=== PATIENT | male | born 1955 | race Caucasian/White ===

== ENCOUNTER 2016-03-23 10:45 | Emergency (ER) | payer MEDICARE, OTHER ==
[~2016-03-23] VITALS: Ht 170.2 cm; Wt 70.0 kg
[~2016-03-23 10:45] MED LIST: BENZ2TAB37 PO; LAMO100T6 PO; NIFE30TA60 PO
[2016-03-23 10:49] VITALS: Ht 170.2 cm; Wt 70.0 kg
== END 2016-03-23 14:36 | disposition left against medical advice (07) ==
LOC: FTE 10:45
DX: Z53.21 Procedure and treatment not carried out due to patient leaving prior to being seen by health care provider (principal)

== ENCOUNTER 2016-03-26 05:58 | Emergency (ER) | payer MEDICARE, OTHER ==
[~2016-03-26] VITALS: Ht 182.9 cm; Wt 75.0 kg
[2016-03-26 06:01] VITALS: Ht 182.9 cm; Wt 75.0 kg
--- NOTE | 2016-03-26 07:26 | RADRPT ---
PROCEDURE: XR Chest. CLINICAL INDICATION: cough TECHNIQUE: Portable single view of the chest COMPARISON: None. FINDINGS: The cardiomediastinal silhouette appears within normal limits. Minimal increase in bibasilar markin gs is likely due to slight crowding of bronchovascular markings. No definite acute infiltrate, pleu ral effusion, or overt congestive heart failure is seen. Degenerative change with rightward scolios is of the thoracic spine. IMPRESSION: No definite acute pulmonary disease. RPTAT: HLBE Argentina Ramos Physician Date Time Electronically viewed and signed by Argentina Ramos Physician on 03/26/2016 07:26 LE/
[2016-03-26] MEDS ORDERED: CETI10CA PO (07:49)
[2016-03-26] MEDS ORDERED: BENZ100C70 PO (07:49)
[2016-03-26 08:01] VITALS: BP 138/72; PULSE 78; RESP 20; TEMP 98.1
--- NOTE | 2016-03-26 11:21 | ERD ---
ER Documentation Chief Complaint Date/Time DATE: 03/26/16 TIME: 11:16 Chief Complaint cold symptoms- nasal congestion,runny nose, cough HPI 60-year-old male with a past medical history of schizophrenia, hypertension, bipolar disorder, schizoaffective disorder presents the ED complaining of rhinorrhea, nasal congestion, dry cough that started intermittently 2 weeks ago. Patient states that he has been drinking ice tea and coffee. Denies taking any medications. Denies any chest pain, shortness of breath, abdominal pain, nausea, vomiting, diarrhea, dyspnea on exertion, orthopnea. ROS All systems reviewed and are negative except as per history of present illness. Medications Home Meds Active Scripts Cetirizine Hcl* (Zyrtec*) 10 Mg Capsule, 10 MG PO DAILY, #10 TAB.CHEW Prov:JOSELITO CUEVAS PA-C 03/26/16 Benzonatate* (Tessalon Perle*) 100 Mg Capsule, 100 MG PO Q8H Y for COUGH, #20 CAP Prov:JOSELITO CUEVAS PA-C 03/26/16 Reported Medications Nifedipine* (Nifedipine ER*) 30 Mg Tablet.sa, 30 MG PO DAILY, TAB.SA 07/06/15 Lamotrigine* (Lamictal* ODT) 100 Mg Tab.rapdis, 100 MG PO DAILY, TAB 07/06/15 Benztropine Mesylate* (Benztropine Mesylate*) 2 Mg Tablet, 2 MG PO BID, TAB 07/06/15 Allergies Allergies: Coded Allergies: No Known Drug Allergies (Verified Allergy, Mild, 03/26/16) PMhx/Soc History of Surgery: No Anesthesia Reaction: No Hx Neurological Disorder: No Hx Respiratory Disorders: No Hx Cardiac Disorders: Yes (htn) Hx Psychiatric Problems: Yes (bipolar; schizophrenia) Hx Miscellaneous Medical Probl: Yes (Renal insuffiency) Hx Alcohol Use: No Hx Substance Use: No Hx Tobacco Use: No (25 years ago) Smoking Status: Never smoker Physical Exam Vitals Vital Signs Date Time Temp Pulse Resp B/P Pulse Ox O2 Delivery O2 Flow Rate FiO2 03/26/16 08:01 98.1 78 20 138/72 99 Room Air 03/26/16 06:01 97.8 84 20 143/87 99 Physical Exam Const: Wpt-zao-bjlxoqrxk, well-nourished. In no acute distress. Head: Atraumatic, normocephalic Eyes: Normal Conjunctiva without injection. No purulent discharge. PERRL. EOMI ENT: Normal external ear. Ear canal without erythema. Tympanic membrane pearly araujo without effusion or bulging. Nasal canal clear with normal turbinates. Moist oropharynx without tonsillar exudates. Non-erythematous pharynx. Uvula midline. No drooling. No trismus. Neck: Full range of motion. No meningismus. No cervical lymphadenopathy. Resp: Clear to auscultation bilaterally. No wheezing, rhonchi, rales, or crackles. No accessory muscle use. No retractions. Cardio: Regular rate and rhythm. No murmurs, rubs or gallops. Abd: Soft, non tender, non distended. Normal bowel sounds. No palpable masses. No rebound tenderness. No guarding. Skin: No petechiae or rashes Back: No midline tenderness. No CVA tenderness. Ext: No cyanosis, or edema. Neur: Awake and alert. Psych: Normal Mood and Affect Procedures/MDM This is a 60-year-old male with a past medical history of schizophrenia, hypertension, bipolar disorder, schizoaffective disorder presents to the ED complaining of dry cough, runny nose, nasal congestion. Patient is afebrile nontoxic appearing. Patient has normal vital signs. PROCEDURE: XR Chest. CLINICAL INDICATION: cough TECHNIQUE: Portable single view of the chest COMPARISON: None. FINDINGS: The cardiomediastinal silhouette appears within normal limits. Minimal increase in bibasilar markings is likely due to slight crowding of bronchovascular markings. No definite acute infiltrate, pleural effusion, or overt congestive heart failure is seen. Degenerative change with rightward scoliosis of the thoracic spine. IMPRESSION: No definite acute pulmonary disease. This patient presents to the ED with symptoms consistent with a viral acute upper respiratory infection. Patient is afebrile and has normal vital signs. Patient's physical exam include lungs which were clear to auscultation and a normal pulse oximetry. There is a low suspicion for pneumonia, pneumothorax, pulmonary embolism, epiglottitis, otitis media, otitis externa, viral/strep pharyngitis, sinusitis, peritonsillar abscess, mastoiditis, retropharyngeal abscess, meningitis, sepsis, acute abdomen or other emergent conditions. Fluids , rest, and symptomatic treatment are recommended for the management of patient' s symptoms. Discharge medications: Zyrtec, Tessalon Madelainees Patient was instructed to return to the ED for any new or worsening symptoms. They should otherwise follow up with the primary care provider within 1-2 days. The patient's questions were answered at the time of discharge. Patient understood and agreed with discharge management. Departure Diagnosis: Primary Impression: URI (upper respiratory infection) URI type: unspecified URI Qualified Code: J06.9 - Upper respiratory tract infection, unspecified type Condition: Stable Patient Instructions: Uri, Viral, No Abx (Adult) Referrals: [facility] YOU HAVE RECEIVED A MEDICAL SCREENING EXAM AND THE RESULTS INDICATE THAT YOU DO NOT HAVE A CONDITION THAT REQUIRES URGENT TREATMENT IN THE EMERGENCY DEPARTMENT. FURTHER EVALUATION AND TREATMENT OF YOUR CONDITION CAN WAIT UNTIL YOU ARE SEEN IN YOUR DOCTORS OFFICE WITHIN THE NEXT 1-2 DAYS. IT IS YOUR RESPONSIBILITY TO MAKE AN APPOINTMENT FOR FOLOW-UP CARE. IF YOU HAVE A PRIMARY DOCTOR --you should call your primary doctor and schedule an appointment IF YOU DO NOT HAVE A PRIMARY DOCTOR YOU CAN CALL OUR PHYSICIAN REFERRAL HOTLINE AT IF YOU CAN NOT AFFORD TO SEE A PHYSICIAN YOU CAN CHOSE FROM THE FOLLOWING [facility] [address]. [facility] [address] [facility]. [facility] [address] [facility] [facility] [address] [facility]. [facility] [address] [facility] [facility]. [address] [facility]. [facility] YOU HAVE RECEIVED A MEDICAL SCREENING EXAM AND THE RESULTS INDICATE THAT YOU DO NOT HAVE A CONDITION THAT REQUIRES URGENT TREATMENT IN THE EMERGENCY DEPARTMENT. FURTHER EVALUATION AND TREATMENT OF YOUR CONDITION CAN WAIT UNTIL YOU ARE SEEN IN YOUR DOCTORS OFFICE WITHIN THE NEXT 1-2 DAYS. IT IS YOUR RESPONSIBILITY TO MAKE AN APPOINTMENT FOR FOLOW-UP CARE. IF YOU HAVE A PRIMARY DOCTOR --you should call your primary doctor and schedule and appointment IF YOU DO NOT HAVE A PRIMARY DOCTOR YOU CAN CALL OUR PHYSICIAN REFERRAL HOTLINE AT . IF YOU CAN NOT AFFORD TO SEE A PHYSICIAN YOU CAN CHOSE FROM THE FOLLOWING [facility] INSTITUTIONS: [facility] [address] [place] [address] [facility] [address] [place] [address] [facility] [address] [place] [address] [facility] URGENT CARE/SPECIALTIES Additional Instructions: FOLLOW UP WITH YOUR PRIMARY CARE PHYSICIAN TOMORROW.Return to this facility if you are not improving as expected. JOSELITO CUEVAS PA-C Mar 26, 2016 11:20
== END 2016-03-26 08:02 | disposition home or self-care (01) ==
LOC: FTE 05:58
DX: J06.9 Acute upper respiratory infection, unspecified (principal); I10 Essential (primary) hypertension
CPT/HCPCS: 71010

== ENCOUNTER 2016-06-10 17:06 | Emergency (ER) | payer MEDICARE, OTHER ==
[~2016-06-10] VITALS: Ht 172.7 cm; Wt 75.0 kg
[~2016-06-10 17:06] MED LIST changes: +BENZ100C70 PO; +CETI10CA PO
[2016-06-10 17:23] VITALS: Ht 172.7 cm; Wt 75.0 kg
[2016-06-10] MEDS ORDERED: FLUT9.9S NASAL (17:53)
[2016-06-10] MEDS ORDERED: FEXO180T61 PO (17:53)
[2016-06-10] MEDS ORDERED: LEVO750T25 PO (17:53)
--- NOTE | 2016-06-10 17:59 | ERD ---
ER Documentation Chief Complaint Date/Time DATE: 06/10/16 TIME: 17:57 Chief Complaint POST NASAL DRIP, I THINK I NEED ABX HPI This is a 60-year-old male presents to the ER sooner symptoms, cough and cold for the last month. Patient is not complaining of postnasal drip. She denies any chest pain and shortness. This has been trying [id number] medications however they've not worked. Patient has a past history of psychiatric illnesses , he is currently homeless. ROS 12 point review of systems was done, all negative except per HPI. Medications Home Meds Active Scripts Fexofenadine Hcl* (Masha*) 180 Mg Tablet, 180 MG PO DAILY, #30 TAB Prov:HUSSEIN CORRIGAN 06/10/16 Fluticasone Propionate (Flonase Allergy Relief) 9.9 Ml [place].susp, 1 SPRAY NASAL BID, #1 BOTTLE TO EACH NOSTRIL Prov:HUSSEIN CORRIGAN 06/10/16 Levofloxacin* (Levaquin*) 750 Mg Tablet, 750 MG PO DAILY for 5 Days, TAB Prov:HUSSEIN CORRIGAN 06/10/16 Cetirizine Hcl* (Zyrtec*) 10 Mg Capsule, 10 MG PO DAILY, #10 TAB.CHEW Prov:JOSELITO CUEVAS PA-C 03/26/16 Benzonatate* (Tessalon Perle*) 100 Mg Capsule, 100 MG PO Q8H Y for COUGH, #20 CAP Prov:JOSELITO CUEVAS PA-C 03/26/16 Reported Medications Nifedipine* (Nifedipine ER*) 30 Mg Tablet.sa, 30 MG PO DAILY, TAB.SA 07/06/15 Lamotrigine* (Lamictal* ODT) 100 Mg Tab.rapdis, 100 MG PO DAILY, TAB 07/06/15 Benztropine Mesylate* (Benztropine Mesylate*) 2 Mg Tablet, 2 MG PO BID, TAB 07/06/15 Allergies Allergies: Coded Allergies: No Known Drug Allergies (Verified Allergy, Mild, 03/26/16) PMhx/Soc History of Surgery: No Anesthesia Reaction: No Hx Neurological Disorder: No Hx Respiratory Disorders: No Hx Cardiac Disorders: Yes (htn) Hx Psychiatric Problems: Yes (bipolar; schizophrenia) Hx Miscellaneous Medical Probl: Yes (Renal insuffiency) Hx Alcohol Use: No Hx Substance Use: No Hx Tobacco Use: No (25 years ago) Physical Exam Vitals Vital Signs Date Time Temp Pulse Resp B/P Pulse Ox O2 Delivery O2 Flow Rate FiO2 06/10/16 17:23 97.9 80 22 125/75 98 Physical Exam GENERAL: The patient is well-developed, well-nourished, in no acute distress. NECK: Cervical spine is non tender with no step off. Supple, no nuchal rigidity HEENT: Atraumatic. Pupils equal, round and reactive to light. Extraocular muscles are grossly intact. Conjunctivae pink, no discharge. Bilateral tympanic membranes are clear with no evidence of erythema, effusion or dulling of the light reflex. Tonsilar erythema with no exudates or uvular deviation. Clear rhinorrhea. RESPIRATORY: Clear to auscultation bilaterally. There are no rales, wheezes or rhonchi. HEART: Regular rate and rhythm. No murmurs, clicks, rubs or gallops. EXTREMITIES: No clubbing or cyanosis. Full range of motion. Grossly neurovascularly intact. NEUROLOGIC: Alert and oriented. Cranial nerves II through XII are intact. SKIN: There is no rash. The skin is warm and dry. Procedures/MDM Differential diagnosis includes but is not limited to; Viral URI, allergic rhinitis, bronchitis, pertussis,pneumonia. She'll be treated for possible bacterial bronchitis secondary to length and severity of symptoms. Also be given Flonase and Masha incase there is an allergic component to this. Clinical suspicion for pneumonia is low as patient appears well, is not hypoxic or in any respiratory distress. Additionally, patients physical examination is benign. Plan was discussed with patient they understand and agree. Patient needs to follow up with PCP in 1-2 days or return to ER sooner if symptoms worsen. Departure Diagnosis: Primary Impression: Post-nasal drip Additional Impression: URI (upper respiratory infection) Condition: Stable Patient Instructions: Preventing Common Respiratory Infections Additional Instructions: Call your primary care doctor TOMORROW for an appointment during the next 1-2 days.See the doctor sooner or return here if your condition worsens before your appointment time. HUSSEIN CORRIGAN Jun 10, 2016 17:59
== END 2016-06-10 17:54 | disposition home or self-care (01) ==
LOC: E/R 17:06
DX: R09.82 Postnasal drip (principal); J06.9 Acute upper respiratory infection, unspecified; I10 Essential (primary) hypertension; Z87.891 Personal history of nicotine dependence
CPT/HCPCS: 99283

== ENCOUNTER 2016-07-05 09:22 | Emergency (ER) | payer MEDICARE, OTHER ==
[~2016-07-05] VITALS: Ht 175.3 cm; Wt 75.0 kg
[~2016-07-05 09:22] MED LIST changes: +FEXO180T61 PO; +FLUT9.9S NASAL; +LEVO750T25 PO
[2016-07-05 09:23] VITALS: Ht 175.3 cm; Wt 75.0 kg
--- NOTE | 2016-07-05 09:54 | ERD ---
ER Documentation Chief Complaint Date/Time DATE: 07/05/16 TIME: 09:52 Chief Complaint ON AN OFF COUGH X 2 MONTHS HPI Patient is a 60-year-old male with a past medical history of schizoaffective disorder who presents to the ED with cough, congestion, runny nose on and off for the last week. He states that he had similar symptoms 1 month ago and was prescribed Levaquin. He states that his symptoms resolved however in the last week his symptoms came back. He states that he has been very active and has been around other people have been sick. He denies fever or chills. He denies hemoptysis or night sweats or green sputum. Denies leg pain or leg swelling. Denies recent surgeries or recent travel. Denies shortness of breath, chest pain or difficulty breathing. Denies headache or dizziness. He is not taking any medication for his symptoms. Denies hallucinations. ROS All systems reviewed and are negative except as per history of present illness. Medications Home Meds Active Scripts Benzonatate* (Tessalon Perle*) 100 Mg Capsule, 100 MG PO Q8H Y for COUGH for 14 Days, CAP Prov:JAYNE DAVIS PA-C 07/05/16 Fluticasone Propionate (Flonase Allergy Relief) 9.9 Ml [place].susp, 1 SPRAY NASAL BID, #1 BOTTLE TO EACH NOSTRIL Prov:JAYNE DAVIS PA-C 07/05/16 Acetaminophen* (Tylophen*) 500 Mg Capsule, 1 CAP PO Q6H Y for PAIN AND OR ELEVATED TEMP, #20 CAP Prov:JAYNE DAVIS PA-C 07/05/16 Fexofenadine Hcl* (Masha*) 180 Mg Tablet, 180 MG PO DAILY, #30 TAB Prov:MEENUHUSSEIN C 06/10/16 Fluticasone Propionate (Flonase Allergy Relief) 9.9 Ml [place].susp, 1 SPRAY NASAL BID, #1 BOTTLE TO EACH NOSTRIL Prov:MEENU,HUSSEIN C 06/10/16 Levofloxacin* (Levaquin*) 750 Mg Tablet, 750 MG PO DAILY for 5 Days, TAB Prov:MEENU,HUSSEIN C 06/10/16 Cetirizine Hcl* (Zyrtec*) 10 Mg Capsule, 10 MG PO DAILY, #10 TAB.CHEW Prov:CUEVAS,JOSELITO Smiley FRIAS 03/26/16 Benzonatate* (Tessalon Perle*) 100 Mg Capsule, 100 MG PO Q8H Y for COUGH, #20 CAP Prov:JOSELITO CUEVAS Smiley FRIAS 03/26/16 Reported Medications Nifedipine* (Nifedipine ER*) 30 Mg Tablet.sa, 30 MG PO DAILY, TAB.SA 07/06/15 Lamotrigine* (Lamictal* ODT) 100 Mg Tab.rapdis, 100 MG PO DAILY, TAB 07/06/15 Benztropine Mesylate* (Benztropine Mesylate*) 2 Mg Tablet, 2 MG PO BID, TAB 07/06/15 Allergies Allergies: Coded Allergies: No Known Drug Allergies (Verified Allergy, Mild, 03/26/16) PMhx/Soc History of Surgery: No Anesthesia Reaction: No Hx Neurological Disorder: No Hx Respiratory Disorders: No Hx Cardiac Disorders: Yes (htn) Hx Psychiatric Problems: Yes (bipolar; schizophrenia) Hx Miscellaneous Medical Probl: Yes (Renal insuffiency) Hx Alcohol Use: No Hx Substance Use: No Hx Tobacco Use: No (25 years ago) Smoking Status: Former smoker FmHx Family History: No coronary disease, No diabetes, No other Physical Exam Vitals Vital Signs Date Time Temp Pulse Resp B/P Pulse Ox O2 Delivery O2 Flow Rate FiO2 07/05/16 09:23 98.2 84 18 136/75 96 Physical Exam GENERAL: Well-developed, well-nourished MALE. Appears in no acute distress. HEAD: Normocephalic, atraumatic. EYES: Pupils are equally reactive bilaterally. EOMs grossly intact. No conjunctival erythema. ENT: Moist mucous membranes. No uvula deviation. No kissing tonsils. No exudates. NECK: Supple. No lymphadenopathy or thyromegaly. No meningismus. negative kernig. negative brudinski. LUNG: Clear to auscultation bilaterally. No rhonchi, wheezing, rales or coarse breath sounds. HEART: Regular rate and rhythm. No murmurs, rubs or gallops. Extremities: Equal pulses bilaterally. No peripheral clubbing, cyanosis or edema. No unilateral leg swelling. Negative Homans sign NEUROLOGIC: Alert and oriented. Moving all four extremities. 5/5 strength in all extremities. Normal speech. Steady gait. SKIN: Normal color. Warm and dry. No rashes or lesions. Capillary refill < 2 seconds Procedures/MDM ER COURSE: I kept the patient and/or family informed of laboratory and diagnostic imaging results throughout the emergency room course. IMAGING STUDIES [place] [address] Radiology Main Line: [phone] DIAGNOSTIC IMAGING REPORT Patient: JOHNSON HUMPHREYS : 1955 Age: 60 Sex: M MR #: [id number] DOS: 07/05/16 0935 Ordering MD: JAYNE DAVIS PA-C Location: [facility] Room/Bed: PROCEDURE: XR Chest. CLINICAL INDICATION: cough TECHNIQUE: Single frontal chest x-ray. COMPARISON: 03/26/2016 FINDINGS: The lungs are clear of acute infiltrates, edema, effusions, or masses.. The cardiomediastinal silhouette is unremarkable. There is mild scoliosis and degenerative spondylosis of the thoracic spine.. IMPRESSION: No acute cardiopulmonary disease. RPTAT: EE .Yvan Starkey MD MD Date Time Electronically viewed and signed by .Yvan Stareky MD, MD on 07/05/2016 10:14 .L/ CC: JAYNE DAVIS PA-C MEDICAL DECISION MAKING: This is a 60-year-old male who presents with cough, congestion 1 week. Vital signs were reviewed. Patient is afebrile. Patient is not hypoxic. Patient is not toxic or ill-appearing. Patient has likely URI of viral etiology. His x- rays of by radiologist is unremarkable. Low suspicion for pneumonia, PE, pneumothorax, ACS, epiglottitis, obstruction, TB, pertussis, meningitis, sepsis. DISCHARGE: At this time, patient is stable for discharge and outpatient management with no new complaints during the ER course. Patient was sent home with Tessalon Perles , Tylenol, Flonase. Patient will be discharged home with instructions to recheck for new or worsening symptoms such as fever, nausea, weakness, LOC and to follow up with primary care in the next 1-2 days. Patient was advised to return to the ER for any new or worsening symptoms. Plan was discussed and patient and/or family understands and agrees. Home instructions were given. Departure Diagnosis: Primary Impression: URI (upper respiratory infection) URI type: unspecified URI Qualified Code: J06.9 - Upper respiratory tract infection, unspecified type Condition: Stable JAYNE DAVIS PA-C July 05, 2016 09:54
--- NOTE | 2016-07-05 10:15 | RADRPT ---
PROCEDURE: XR Chest. CLINICAL INDICATION: cough TECHNIQUE: Single frontal chest x-ray. COMPARISON: 03/26/2016 FINDINGS: The lungs are clear of acute infiltrates, edema, effusions, or masses.. The cardiomediastinal silho uette is unremarkable. There is mild scoliosis and degenerative spondylosis of the thoracic spine.. IMPRESSION: No acute cardiopulmonary disease. RPTAT: EE .Yvan Starkey MD, MD Date Time Electronically viewed and signed by .Yvan Starkey MD, on 07/05/2016 10:14 .L/
[2016-07-05] MEDS ORDERED: ACET500C5 PO (10:23)
[2016-07-05] MEDS ORDERED: FLUT9.9S NASAL (10:23)
[2016-07-05] MEDS ORDERED: BENZ100C70 PO (10:24)
[2016-07-08] MEDS ORDERED: POLY10DR19 BOTH EYES (11:19)
== END 2016-07-05 11:32 | disposition home or self-care (01) ==
LOC: FTE 09:22
DX: J06.9 Acute upper respiratory infection, unspecified (principal); I10 Essential (primary) hypertension; Z87.891 Personal history of nicotine dependence
CPT/HCPCS: 71010

== ENCOUNTER 2017-02-04 11:27 | Emergency (ER) | payer MEDICARE, OTHER ==
[~2017-02-04] VITALS: Ht 157.5 cm; Wt 73.6 kg
[~2017-02-04 11:27] MED LIST changes: +ACET500C5 PO; +POLY10DR19 BOTH EYES
[2017-02-04 11:29] VITALS: Ht 157.5 cm; Wt 73.6 kg
--- NOTE | 2017-02-04 14:14 | RADRPT ---
PROCEDURE: Chest x-ray CLINICAL INDICATION: Cough TECHNIQUE: Chest 2 views COMPARISON: 07/05/2016 FINDINGS: The heart is normal in size. The pulmonary vessels are normal in caliber. On the lateral view, ther e is electric cardiac patchy infiltrate suspicious for evolving pneumonia. Lungs otherwise clear. Co stophrenic angles are sharp. Bony thorax is unremarkable IMPRESSION: Retrocardiac infiltrate / pneumonia RPTAT: HH .Serg Mcguire MD, MD Date Time Electronically viewed and signed by .Serg Mcguire MD, on 02/04/2017 14:13 .W/
--- NOTE | 2017-02-04 14:20 | ERD ---
ER Documentation Chief Complaint Chief Complaint Cough x 1 week HPI The patient is a 61-year-old male who presents to the Emergency Department with complaint of a productive cough. The patient reports that his symptoms began one week ago, with onset of a productive cough of green-colored phlegm. He believes that his symptoms began because he "stayed up all night" and then "lifted weights at 1:00 and 2:00 am". He notes a history of pneumonia, and is concerned that he may have recurrent pneumonia. Otherwise, he denies any fevers , sweats, chills, nausea, vomiting, significant congestion, sore throat, ear pain, neck pain, neck stiffness, new rashes. Denies chest pain, palpitations, shortness of breath. Denies hemoptysis. Denies lower extremity swelling. Denies sick contacts. No other complaints at this time. ROS All systems reviewed and are negative except as per history of present illness. Medications Home Meds Active Scripts Azithromycin* (Zithromax*) 250 Mg Tablet, 250 MG PO .FranklynPACK DIRECTED, #6 TAB TAKE 500 MG (2 TABS) THE FIRST DAY THEN 250 MG (1 TAB) DAYS 2-5 Prov:GALLO ORLANDO PA-C 02/04/17 Polymyxin B Sulfate-TMP* (Polymyxin B-TMP Eye Drops*) 10 Ml Drops, 1 DROP BOTH EYES QID for 7 Days, EA Prov:MIHAELA NEWBERRY PA-C 07/08/16 Benzonatate* (Tessalon Perle*) 100 Mg Capsule, 100 MG PO Q8H Y for COUGH for 14 Days, CAP Prov:JAYNE DAVIS PA-C 07/05/16 Fluticasone Propionate (Flonase Allergy Relief) 9.9 Ml [place].susp, 1 SPRAY NASAL BID, #1 BOTTLE TO EACH NOSTRIL Prov:JAYNE DAVIS PA-C 07/05/16 Acetaminophen* (Tylophen*) 500 Mg Capsule, 1 CAP PO Q6H Y for PAIN AND OR ELEVATED TEMP, #20 CAP Prov:JAYNE DAVIS PA-C 07/05/16 Fexofenadine Hcl* (Masha*) 180 Mg Tablet, 180 MG PO DAILY, #30 TAB Prov:HUSSEIN CORRIGAN 06/10/16 Fluticasone Propionate (Flonase Allergy Relief) 9.9 Ml [place].susp, 1 SPRAY NASAL BID, #1 BOTTLE TO EACH NOSTRIL Prov:HUSSEIN CORRIGAN 06/10/16 Levofloxacin* (Levaquin*) 750 Mg Tablet, 750 MG PO DAILY for 5 Days, TAB Prov:HUSSEIN CORRIGAN 06/10/16 Cetirizine Hcl* (Zyrtec*) 10 Mg Capsule, 10 MG PO DAILY, #10 TAB.CHEW Prov:JOSELITO CUEVAS PA-C 03/26/16 Benzonatate* (Tessalon Perle*) 100 Mg Capsule, 100 MG PO Q8H Y for COUGH, #20 CAP Prov:JOSELITO CUEVAS PA-C 03/26/16 Reported Medications Nifedipine* (Nifedipine ER*) 30 Mg Tablet.sa, 30 MG PO DAILY, TAB.SA 07/06/15 Lamotrigine* (Lamictal* ODT) 100 Mg Tab.rapdis, 100 MG PO DAILY, TAB 07/06/15 Benztropine Mesylate* (Benztropine Mesylate*) 2 Mg Tablet, 2 MG PO BID, TAB 07/06/15 Allergies Allergies: Coded Allergies: No Known Drug Allergies (Verified Allergy, Mild, 02/04/17) PMhx/Soc History of Surgery: No Anesthesia Reaction: No Hx Neurological Disorder: No Hx Respiratory Disorders: No Hx Cardiac Disorders: Yes (htn) Hx Psychiatric Problems: Yes (bipolar; schizophrenia) Hx Miscellaneous Medical Probl: Yes (Renal insuffiency) Hx Alcohol Use: No Hx Substance Use: No Hx Tobacco Use: Yes (25 years ago) Smoking Status: Former smoker Physical Exam Vitals Vital Signs Date Time Temp Pulse Resp B/P Pulse Ox O2 Delivery O2 Flow Rate FiO2 02/04/17 14:31 98.0 78 18 130/82 99 Room Air 02/04/17 11:29 97.9 89 18 139/85 99 Physical Exam GENERAL: Well-developed, well-nourished, in no acute distress. HEENT: Head is normocephalic, atraumatic. No scleral pallor or icterus. Pupils equal, round and reactive to light. Extraocular movements intact. Conjunctiva pink. Bilaterally tympanic membranes are clear with no evidence of erythema, effusion or dulling of the light reflex. Moist mucous membranes. No pharyngeal erythema or exudates. Uvula is midline. NECK: Supple. No masses, no tenderness, no lymphadenopathy. Trachea midline. No nuchal rigidity. Full range of motion. RESPIRATORY: Lungs are clear to auscultation bilaterally. Normal expiratory effort. Symmetrical expansion. No accessory muscle use. Speaking in full sentences. CARDIOVASCULAR: Regular rate and rhythm. S1 and S2 normal. GASTROINTESTINAL: Abdomen is soft, nontender, and nondistended. No guarding, no rebound tenderness. Normal bowel sounds. BACK: No midline tenderness. EXTREMITIES: No clubbing, cyanosis, or edema. Normal skin perfusion. Moving all extremities. Muscle tone is normal. No focal swelling or erythema. Distal pulses are palpable, 2+ bilaterally. Capillary refill is less than 2 seconds. NEUROLOGIC: The patient is alert, awake, and oriented x 3. No focal neurologic deficits. INTEGUMENT: Skin is clean, dry and intact. No rashes, lesions or petechiae present. PSYCHIATRIC: Appropriate; Cooperative. Procedures/MDM DIAGNOSTIC TESTS AND INTERPRETATION: PROCEDURE: Chest x-ray CLINICAL INDICATION: Cough TECHNIQUE: Chest 2 views COMPARISON: 07/05/2016 FINDINGS:The heart is normal in size. The pulmonary vessels are normal in caliber. On the lateral view, there is electric cardiac patchy infiltrate suspicious for evolving pneumonia. Lungs otherwise clear. Costophrenic angles are sharp. Bony thorax is unremarkable IMPRESSION:Retrocardiac infiltrate / pneumonia .Serg Mcguire MD, Date Time Electronically viewed and signed by .Serg Mcguire MD, MD on 02/04/2017 14:13 MEDICAL DECISION MAKING: This is a 61-year-old male presenting to the emergency department complaining of 1 week of productive cough. He was afebrile on arrival with no tachycardia, no tachypnea no signs of respiratory distress. He had a normal O2 saturation on room air. He had no retractions, no increased work of breathing, no nasal flaring, no accessory muscle use. He exhibited no altered mental status, neurologic deficits or meningeal signs. Differential diagnosis includes, but is not limited to, pneumonia, pulmonary edema, sinusitis , foreign body, pertussis, upper respiratory infection, asthma, allergic rhinitis, GERD, bronchitis, allergic reaction, influenza, pharyngitis. X-ray imaging revealed a retrocardiac patchy infiltrate suspicious for evolving pneumonia. After rest the patient reports no new complaints. Upon my review and interpretation of the patient's presentation and ER course, I believe the patient's symptoms are most consistent with acute pneumonia. No evidence of apnea, respiratory failure, dehydration, meningitis or other life-threatening etiology. The patient is well-appearing. His neck was supple, with no altered mental status, and therefore I doubt meningitis. Oropharynx was clear, with no erythema, exudates, petechiae, no associated cervical lymphadenopathy, and therefore I doubt streptococcal pharyngitis. Tympanic membranes were clear bilaterally with no erythema or bulging noted, and therefore I doubt otitis media. At this time, the patient is in stable condition and not experiencing any current shortness of breath, wheezing or any signs of respiratory distress, and therefore can be discharged home with a prescription for Z-susan and given strict return precautions for signs of deteriorating or worsening condition. The patient is advised to follow up with his primary care provider within 1-2 days for reevaluation and further management or return to the ER sooner for any worsening symptoms. I shared my medical decision making and plan with the patient at length and in great detail, and he verbally understands and agrees with the plan for further observation and care as an outpatient. At the time of discharge all questions were answered. Departure Diagnosis: Primary Impression: Pneumonia Pneumonia type: due to unspecified organism Laterality: unspecified laterality Lung location: unspecified part of lung Qualified Code: J18.9 - Pneumonia due to infectious organism, unspecified laterality, unspecified part of lung Condition: Stable Patient Instructions: Pneumonia, Pneumonia (Adult) Additional Instructions: Call your primary care doctor TOMORROW for an appointment during the next 1-2 days.See the doctor sooner or return here if your condition worsens before your appointment time. GALLO ORLANDO PA-C Feb 04, 2017 14:20
[2017-02-04] MEDS ORDERED: AZIT250T94 PO (14:21)
[2017-02-04 14:31] VITALS: BP 130/82; PULSE 78; RESP 18; TEMP 98
== END 2017-02-04 14:32 | disposition home or self-care (01) ==
LOC: FTE 11:27
DX: J18.9 Pneumonia, unspecified organism (principal); I10 Essential (primary) hypertension; Z87.891 Personal history of nicotine dependence
CPT/HCPCS: 71020

== ENCOUNTER 2017-02-26 13:22 | Emergency (ER) | END 2017-02-26 14:33 | disposition home or self-care (01) ==

== ENCOUNTER 2017-07-07 14:22 | Emergency (ER) | END 2017-07-07 20:10 | disposition home or self-care (01) ==

== ENCOUNTER 2018-02-16 13:47 | Emergency (ER) | payer MEDICARE, OTHER ==
[~2018-02-16] VITALS: Wt 76.6 kg
[~2018-02-16 13:47] MED LIST changes: +AZIT250T PO; +BENZ-6 PO; -BENZ100C70 PO; -BENZ2TAB37 PO; +BENZ2TAB7 PO; +NIFE30TA23 PO; -NIFE30TA60 PO
[2018-02-16 13:51] VITALS: BP 141/93; PULSE 84; RESP 20
--- NOTE | 2018-02-16 14:27 | ERD ---
ER Documentation Chief Complaint Chief Complaint cough HPI 62-year-old male, presents to the emergency department, complaining of 1 week with worsening of cough, sore throat and general malaise. Denies chest pain, no shortness of breath, no fever or chills, no urinary symptoms. The patient is requesting chest x-rays because he had a history of pneumonia last year. No flu shot this season. ROS All systems reviewed and are negative except as per history of present illness. Medications Home Meds Active Scripts Inhaler, Assist Devices (Compact Space Chamber) 1 Each Spacer, EACH MC Q4H WHILE AWAKE PRN for COUGH, #1 Prov:JACOB URIOSTEGUI MD 02/16/18 Albuterol Sulfate* (Proair HFA*) 8.5 Gm Hfa.aer.ad, 2 PUFF INH Q4H PRN for WHEEZING AND SOB, #1 INHALER Prov:JACOB URIOSTEGUI MD 02/16/18 Benzonatate* (Tessalon Perle*) 100 Mg Capsule, 100 MG PO Q8H PRN for COUGH, #30 CAP Prov:JOVANA COLON PA-C 07/07/17 Fluticasone Propionate (Flonase Allergy Relief) 9.9 Ml [place].susp, 1 SPRAY NASAL BID for 28 Days, #1 BOTTLE TO EACH NOSTRIL Prov:JOVANA COLON PA-C 07/07/17 Cetirizine Hcl* (Zyrtec*) 10 Mg Capsule, 10 MG PO DAILY, #30 TAB.CHEW Prov:JOVANA COLON PA-C 07/07/17 Levofloxacin* (Levaquin*) 750 Mg Tablet, 750 MG PO DAILY for 5 Days, TAB Prov:RODRÍGUEZ ROD PA-C 02/26/17 Azithromycin* (Zithromax*) 250 Mg Tablet, 250 MG PO .FranklynPAMARIELOS DIRECTED, #6 TAB TAKE 500 MG (2 TABS) THE FIRST DAY THEN 250 MG (1 TAB) DAYS 2-5 Prov:GALLO ORLANDO PA-C 02/04/17 Polymyxin B Sulfate-TMP* (Polymyxin B-TMP Eye Drops*) 10 Ml Drops, 1 DROP BOTH EYES QID for 7 Days, EA Prov:MIHAELA NEWBERRY PA-C 07/08/16 Benzonatate* (Tessalon Perle*) 100 Mg Capsule, 100 MG PO Q8H PRN for COUGH for 14 Days, CAP Prov:JAYNE DAVIS PA-C 07/05/16 Fluticasone Propionate (Flonase Allergy Relief) 9.9 Ml [place].susp, 1 SPRAY NASAL BID, #1 BOTTLE TO EACH NOSTRIL Prov:JAYNE DAVIS PA-C 07/05/16 Acetaminophen* (Tylophen*) 500 Mg Capsule, 1 CAP PO Q6H PRN for PAIN AND OR ELEVATED TEMP, #20 CAP Prov:JAYNE DAVIS PA-C 07/05/16 Fexofenadine Hcl* (Masha*) 180 Mg Tablet, 180 MG PO DAILY, #30 TAB Prov:HUSSEIN CORRIGAN 06/10/16 Fluticasone Propionate (Flonase Allergy Relief) 9.9 Ml [place].susp, 1 SPRAY NASAL BID, #1 BOTTLE TO EACH NOSTRIL Prov:HUSSEIN CORRIGAN 06/10/16 Levofloxacin* (Levaquin*) 750 Mg Tablet, 750 MG PO DAILY for 5 Days, TAB Prov:HUSSEIN CORRIGAN 06/10/16 Cetirizine Hcl* (Zyrtec*) 10 Mg Capsule, 10 MG PO DAILY, #10 TAB.CHEW Prov:JOSELITO CUEVAS PA-C 03/26/16 Benzonatate* (Tessalon Perle*) 100 Mg Capsule, 100 MG PO Q8H PRN for COUGH, #20 CAP Prov:JOSELITO CUEVAS PA-C 03/26/16 Reported Medications Nifedipine* (Nifedipine ER*) 30 Mg Tablet.sa, 30 MG PO DAILY, TAB.SA 07/06/15 Lamotrigine* (Lamictal* ODT) 100 Mg Tab.rapdis, 100 MG PO DAILY, TAB 07/06/15 Benztropine Mesylate* (Benztropine Mesylate*) 2 Mg Tablet, 2 MG PO BID, TAB 07/06/15 Allergies Allergies: Coded Allergies: No Known Drug Allergies (Verified Allergy, Mild, 02/04/17) PMhx/Soc History of Surgery: No Anesthesia Reaction: No Hx Neurological Disorder: No Hx Respiratory Disorders: No Hx Cardiac Disorders: Yes (htn) Hx Psychiatric Problems: Yes (bipolar; schizophrenia) Hx Miscellaneous Medical Probl: Yes (Renal insuffiency) Hx Alcohol Use: No Hx Substance Use: No Hx Tobacco Use: Yes (25 years ago) Smoking Status: Current every day smoker FmHx Family History: diabetes, coronary disease Physical Exam Vitals Vital Signs Date Temp Pulse Resp B/P (MAP) Pulse Ox O2 O2 Flow FiO2 Time Delivery Rate 02/16/18 98.0 84 20 141/93 97 13:51 (109) Physical Exam Const: No acute distress Head: Atraumatic Eyes: Normal Conjunctiva ENT: Normal External Ears, Nose and Mouth. Neck: Full range of motion. No meningismus. Resp: Clear to auscultation bilaterally Cardio: Regular rate and rhythm, no murmurs Abd: Soft, non tender, non distended. Normal bowel sounds Skin: No petechiae or rashes Back: No midline or flank tenderness Ext: No cyanosis, or edema Neur: Awake and alert Psych: Normal Mood and Affect Results [address] [place] [address] Radiology Main Line: [phone] DIAGNOSTIC IMAGING REPORT Patient: JOHNSON HUMPHREYS : 1955 Age: 62 Sex: M MR #: [id number] DOS: 02/16/18 [facility] Ordering MD: JACOB URIOSTEGUI MD Location: [facility] Room/Bed: PROCEDURE: XR Chest. CLINICAL INDICATION: cough TECHNIQUE: PA and Lateral views of the chest were obtained. COMPARISON: CR CHEST 03/26/2016 FINDINGS: Minimal opacities in the left lung base. No effusion or pneumothorax. Heart size is normal. No acute fractures. Old right-sided rib fracture. IMPRESSION: Minimal opacities in the left lung base, favor partial atelectasis. RPTAT:AAJJ Physician Karyn Date Time Electronically viewed and signed by Physician Karyn on 02/16/2018 15:36 RF/ CC: JACOB URIOSTEGUI MD [phone] Procedures/MDM Differential diagnosis include but not limited to: Respiratory infection bacterial/viral/fungal. Asthma, pneumonitis, allergies, GERD. Less likely foreign body aspiration, cardiac related, aspiration pneumonia, malignancy. Physical examination and clinical presentation consistent most likely with viral syndrome. During the ED course the patient remained stable, no new complaints. Clinical impression discussed with the patient who agrees with management. The patient is stable to be treated outpatient and will be discharged home. antibiotics not indicated at this time. some side effects of prescribed medications (headache, rash, nausea, vomiting, diarrhea, drowsiness, hypertension, interactions with other medications) were reviewed. The patient was instructed to follow up with the primary care provider in the next 48h. If symptoms persist, worsen or new symptoms develop, then patient should return to the ED immediately. Disclaimer: Inadvertent spelling and grammatical errors are likely due to EHR/dictation software use and do not reflect on the overall quality of patient care. Also, please note that the electronic time recorded on this note does not necessarily reflect the actual time of the patient encounter. Departure Diagnosis: Primary Impression: Cough Condition: Stable Additional Instructions: Thank you very much for allowing us to participate in your care. Your health and safety is our top priority at [facility]. Call your primary care doctor TOMORROW for an appointment during the next 2-4 days and bring all the information and medications prescribed. Have prescriptions filled and follow precisely the directions on the label. If the symptoms get worse and your provider is unavailable, return to the Emergency Department immediately. JACOB URIOSTEGUI MD Feb 16, 2018 14:27
[2018-02-16] MEDS ORDERED: INHA-3 MC (15:47)
[2018-02-16] MEDS ORDERED: ALBU8.5H8 INH (15:47)
== END 2018-02-16 16:09 | disposition home or self-care (01) ==
LOC: FTE 13:47
DX: R05 Cough (principal); I10 Essential (primary) hypertension; F17.210 Nicotine dependence, cigarettes, uncomplicated
CPT/HCPCS: 71046